=== PATIENT | female | born 1960 | race Caucasian/White ===

== ENCOUNTER → 2022-08-25 16:03 | Outpatient (CLI) | payer MEDICARE, SELFPAY ==
--- NOTE | ~2022-08-25 | MM_ITS ---
EXAMINATION: MM screening zulema BI w nadine HISTORY: Screening mammogram, family history of breast cancer in her mother. TECHNIQUE: Craniocaudal and mediolateral oblique 3-D tomosynthesis images were obtained and synthetic 2-D images were generated. CAD analysis was submitted and interpreted. COMPARISON: 11/16/2017, 03/14/2015, 08/24/2012 BREAST PARENCHYMAL COMPOSITION: The breasts are almost entirely fatty. FINDINGS: No suspicious mass, calcification, or architectural distortion are identified in either edwin ast to suggest malignancy. There has been no suspicious interval change. IMPRESSION: 1. No mammographic evidence of malignancy. 2. Recommend routine screening mammography in one year. BI-RADS Category 1: Negative Reviewed, dictated and finalized at location A.
== END ==
PROVIDERS: PCP Family Medicine; Visit Provider Family Medicine
DX: Z12.31 Encounter for screening mammogram for malignant neoplasm of breast (principal)
CPT/HCPCS: 77063; 77067

== ENCOUNTER 2022-11-12 10:53 | Emergency (ER) | payer OTHER, MEDICARE, SELFPAY ==
--- NOTE | ~2022-11-12 | XR_ITS ---
EXAMINATION: XR chest 2V DATE: 11/12/2022 14:07 INDICATION: Cough. TECHNIQUE: Frontal and lateral views of the chest were obtained. COMPARISON: Chest 2 views 03/06/2015, chest CT 04/23/2016 FINDINGS: There are chronic airspace opacities in right perihilar region with volume loss, consistent with radiation fibrosis. No pleural effusion or pneumothorax. The heart size is normal. Surgical cli ps in the right upper quadrant are likely from cholecystectomy. IMPRESSION: 1. 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 Reviewed, dictated and finalized at location A.
[2022-11-12 11:16] VITALS: BP 124/75; PULSE 113; RESP 20; TEMP 36.6; O2SAT 100
[2022-11-12 12:30] VITALS: BP 125/92; PULSE 106; RESP 22; O2SAT 98
[2022-11-12 12:39] VITALS: PULSE 104; RESP 18
[2022-11-12] MEDS: ALBUTEROL SULFATE NEB 2.5 MG/3 ML INH INHALATION (12:39)
[2022-11-12] MEDS: IPRATROPIUM BR 0.02% INH SOLN 0.5 MG/2.5 ML VIAL INHALATION (12:39)
[2022-11-12 12:47] VITALS: PULSE 107; RESP 20
[2022-11-12 13:20] LABS: Basophils Percent Auto 0.3 % (0.2-1.2); Eosinophils Absolute Auto 0.2 K/mm3 (0-0.3); Eosinophils Percent Auto 1.1 % (0-4.4); Hematocrit 37.7 % (37.0-47.0); Hemoglobin 12.1 g/dL (12.0-15.0); Immature Granulocyte Absolute 0.08 K/mm3 (0.00-0.031); Immature Granulocyte Percent A 0.5 % (0-0.5); Lymphocytes Percent Auto 23.9 % (18.3-44.2); Mean Corpuscular HGB Conc 32.1 g/dl (32-36); Mean Corpuscular Hemoglobin 29.8 pg (26-34); Mean Corpuscular Volume 92.9 fl (80-100); Mean Platelet Volume 8.8 fl (7.4-10.4); Monocytes Absolute Auto 1.1 K/mm3 (0.1-0.6); Monocytes Percent Auto 7.2 % (2.6-8.5); Neutrophils Absolute Auto 10.1 K/mm3 (1.3-6.7); Platelet Count Result 337 k/mm3 (150-375); Red Blood Count 4.06 M/mm3 (4.2-5.4); Red Cell Distribution Width 13.3 % (11.5-14.5); White Blood Count 15.1 K/mm3 (4.5-10.0)
--- NOTE | 2022-11-12 13:27 | ED.GENADULT ---
HPI - General Adult General Chief complaint: Upper Respiratory Infection Stated complaint: Fever, chills, SOB Time Seen by Provider: 11/12/22 11:55 History of Present Illness HPI narrative: Patient is a 62-year-old female who presents ER with fever and cough. Ongoing over the last 4 days. No sinus congestion but mild sore throat. Fever up to 101 ?F. Feels like she cannot get anything coughed up. She would like a cough suppressant. No exertional dyspnea. Denies any COPD but does have history of lung cancer in the past. No chest pain or chest pressure. No alleviating factors. Related Data Allergies Allergy/AdvReac Type Severity Reaction Status Date / Time Cephalosporins Allergy Severe RASH, Verified 06/14/22 15:13 SEVERE SWELLING, DIFF BREATHING codeine Allergy Mild Hives Verified 06/14/22 15:13 cephalexin Allergy Unknown unknown Verified 06/14/22 15:13 ciprofloxacin Allergy Unknown Anaphylaxis Verified 06/14/22 15:13 clavulanic acid Allergy Unknown BETALACTAMASE Verified 06/14/22 15:13 INHIBITORS Penicillins Allergy Unknown unknown Verified 06/14/22 15:13 Sulfa (Sulfonamide Allergy Unknown unknown Verified 06/14/22 15:13 Antibiotics) Review of Systems Review of Systems: All systems reviewed & are unremarkable except as noted in HPI and below Constitutional: Constitutional: Reports chills, Denies fatigue and Reports fever(s) ENT: Denies nasal congestion and Reports sore throat Cardiovascular: Cardiovascular: Denies chest pain, Denies rapid heart rate and Denies radiating jaw, neck or arm pain Respiratory: Respiratory: Reports cough, Denies dyspnea and Denies wheezing Gastrointestinal: Gastrointestinal: Denies abdominal pain, Denies nausea and Denies vomiting [facility] Past Medical History Medical History Anxiety Bladder prolapse Bladder prolapse, female, acquired Colon cancer screening (~2018) Cologuard negative Diabetes HLD (hyperlipidemia) Lung cancer Peripheral neuropathy Pulmonary embolism Pulmonary embolus Small cell lung cancer Surgical History Surgical History H/O: hysterectomy History of cholecystectomy History of cholecystectomy History of total abdominal hysterectomy (~2004) Family History Family History Other Cerebrovascular accident Family history of chronic obstructive pulmonary disease Family history of coronary artery disease Social History Social History (Updated 06/14/22 @ 15:13 by Preethi Garcia [facility]) Smoking status: Former smoker Second hand tobacco smoke exposure: Yes Smoking end date: 04/25/11 Alcohol intake: current Substance use: never Substance use type: does not use Lack of Transportation: No Lack of Food: Never True Current Housing: I Have Housing Concerned About Future Housing: No Difficulty Paying Gas/Electric Bills: No Difficulty Paying for Meds: No Currently Unemployed: No Difficulty w/ Childcare or Family Care: No Gender identity (if verbalized by the patient): Female Sexual Orientation (if Verbalized by the Patient): Straight or Heterosexual Spiritual care concerns: No Agree to blood products: Yes Exam Narrative: GENERAL: Well-appearing, well-nourished, and in no acute distress. HEAD: Normocephalic, atraumatic. ENT: Mucous membranes moist. Normal-appearing posterior oropharynx. CHEST: Clear to auscultation. No respiratory distress. HEART: Regular rate and rhythm. Normal peripheral pulses. ABDOMEN: Soft, nontender, nondistended. EXTREMITIES: Normal range of motion. No edema. NEURO: Alert and oriented x3. PSYCH: Normal mood and affect. Course Course Emergency Course: Patient feels improved with nebulizer treatment. Lungs are clear. Cough is nonproductive. Chest x-ray with radiation scarring and no focal infiltra
[2022-11-12 13:30] VITALS: BP 99/67; PULSE 112; RESP 20; O2SAT 95
[2022-11-12 13:31] LABS: Alanine Aminotransferase 25 U/L (6-35); Albumin Level 3.7 g/dL (3.5-5.1); Alkaline Phosphatase 147 U/L (38-126); Anion Gap 9 mmol/L (8-16); Aspartate Amino Transferase 26 U/L (14-36); Bilirubin,Total 0.6 mg/dL (0.2-1.3); Blood Urea Nitrogen 12 mg/dL (7-17); Calcium 8.6 mg/dL (8.4-10.2); Carbon Dioxide 27 mmol/L (22-30); Chloride 104 mmol/L (98-107); Estimated CRCL calculation 53 ml/min; Estimated Glomerular Filt Rate 46; Glucose 146 mg/dL (65-110); Potassium 4.4 mmol/L (3.4-5.0); Sodium 140 mmol/L (137-145)
[2022-11-12 13:46] LABS: Influenza A QL RT-PCR Negative (Negative); Influenza B QL RT-PCR Negative (Negative); SARS-CoV-2 RNA PCR Negative (Negative)
== END 2022-11-12 15:32 | disposition home or self-care (01) ==
PROVIDERS: Emergency Provider Emergency Medicine; PCP Family Medicine
DX: B34.9 Viral infection, unspecified (principal); Z20.822 Contact with and (suspected) exposure to COVID-19; E78.5 Hyperlipidemia, unspecified; E11.42 Type 2 diabetes mellitus with diabetic polyneuropathy; N81.10 Cystocele, unspecified; Z85.118 Personal history of other malignant neoplasm of bronchus and lung; Z86.711 Personal history of pulmonary embolism; Z87.891 Personal history of nicotine dependence; Z90.710 Acquired absence of both cervix and uterus; Z90.49 Acquired absence of other specified parts of digestive tract; Z79.85 Long-term (current) use of injectable non-insulin antidiabetic drugs; Z79.4 Long term (current) use of insulin; Z79.84 Long term (current) use of oral hypoglycemic drugs
CPT/HCPCS: 36415; 71046; 80053; 85025; 87636; 94640; 99283

== ENCOUNTER 2023-05-07 12:54 | Outpatient (CLI) | payer MEDICARE, OTHER, SELFPAY ==
--- NOTE | ~2023-05-07 | XR_ITS ---
Right Knee Technique: AP, lateral, and sunrise views were obtained. Clinical History: Pain Findings: No acute fracture or dislocation is seen. Tibial intramedullary matias is partially imaged. Ol d, healed fracture deformity of the mid fibular shaft noted. Osseous alignment is anatomic. Joint spa remedios are preserved without degenerative or erosive change. Soft tissues are unremarkable. No joint eff usion is seen. Impression: No acute abnormality. Tibial intramedullary matias. Old, healed fracture deformity of the mid fibular shaft. Reviewed, dictated and finalized at location M. LO DRIVER Impression: No acute abnormality. Tibial intramedullary matias. Old, healed fracture deformity of the mid fibular shaft.
== END 2023-05-07 12:55 | disposition home or self-care (01) ==
LOC: ANHIMG 12:55
PROVIDERS: PCP Orthopaedic Surgery; Visit Provider Physician Assistant Medical
DX: M25.561 Pain in right knee (principal); Z96.698 Presence of other orthopedic joint implants; Z87.81 Personal history of (healed) traumatic fracture
CPT/HCPCS: 73562

== ENCOUNTER 2023-06-27 08:19 | Outpatient (CLI) | payer MEDICARE, SELFPAY ==
--- NOTE | 2023-06-27 08:30 | ECG_ITS ---
Measurements Intervals [place] Rate: 99 P: 41 MT: 156 QRS: 53 QRSD: 99 T: 61 QT: 361 QTc: 464 Interpretive Statements SINUS RHYTHM LOW QRS VOLTAGE IN PRECORDIAL LEADS BORDERLINE T WAVE ABNORMALITY- ANTERIOR LEADS BORDERLINE ECG NO PREVIOUS ECG AVAILABLE FOR COMPARISON Electronically Signed On 06-27-2023 9:18:48 ARCHITECTURE FACULTY MEMBER by Eduardo Silva D.O.
== END 2023-06-27 08:20 | disposition home or self-care (01) ==
PROVIDERS: PCP Family Medicine; Visit Provider Anesthesiology
DX: E78.5 Hyperlipidemia, unspecified (principal); R94.31 Abnormal electrocardiogram [ECG] [EKG]
CPT/HCPCS: 93005

== ENCOUNTER 2023-06-30 01:14 | Day surgery (SDC) | payer MEDICARE, SELFPAY ==
[2023-06-24 14:55] VITALS: BMI 36.6
--- NOTE | 2023-06-24 15:08 | PC.NURSE ---
Report to the Outpatient Waiting Room, entrance under the green pavilion located off [facility], at time _0830 on date _06/30/23 . Planned Procedure Time: _1030 . Time changes happen often and if your time is changed the preop area will call you the afternoon before. - You and your visitor will be asked to self-screen and do not enter if you have any COVID symptoms. - A mask is optional within the hospital at this time. Patients may have clear liquids (water, carbonated beverages, clear teas, apple juice) until 3 hours prior to surgery with a maximum of 20 ounces. - No food from midnight until time of surgery - Infants may have breast milk until 4 hours before surgery, formula 6 hours prior to surgery. - Children will be allowed to drink immediately following surgery. If applicable, please bring a bottle or sippy cup to assist with drinking. Juice, water, soda, and popsicles are readily available. For infants on formula, please bring formula the day of surgery. Pacifiers are allowed. Take the following medications with a SIP of water the morning of surgery: _Inhalers DO NOT STOP ANY OF YOUR OTHER PRESCRIPTION MEDICATIONS PRIOR TO SURGERY ?EXCEPT THE FOLLOWING Medications to discontinue per physician _No NSAIDs 7 days prior_ No additional short acting insulin at bedtime. Please no make-up, nail danish, hairspray, perfume, deodorant, or body powder the day of surgery. No jewelry (including any body piercings) or valuables the day of surgery, leave them at home. Please take a shower or bath the night before, or the morning of, surgery with an antibacterial soap. Wear comfortable, loose fitting clothing. Children are encouraged to wear pajamas. - Jewelry must be removed prior to entering the operating room. Rings and piercings that are not removed may be cut off. - The hospital will not accept responsibility for valuables. - Please leave all valuables, including medications, at home the day of surgery. If you are going home after surgery, a licensed pile driver engineer must drive you home. - NO public transportation without another adult if you receive anesthesia. - We recommend that an adult stay with you for 24 hours following discharge. - We also recommend that you do not drive, make important decision, drink alcoholic beverages, or take any drugs that were not prescribed by your health care provider for at least 24 hours after your discharge time. For Pediatric surgeries, we recommend two adults accompany the child home. Follow any additional instructions given to you from your surgeon. If you or anyone in your household have experienced Covid symptoms in the past week, please notify your surgeon or the nurse liaison at the phone number below for possible testing. Telephone instructions given to __Odalys and asked if any additional questions and then verbalized understanding. Patient advised to call surgeon office or pre surgery nurse liaison [phone] if any additional questions.
--- NOTE | 2023-06-29 11:58 | WPDANESEPPF ---
Anes - Initial Pre Proc Eval Procedure: Operation Date: 06/30/23 09:15 Proposed Procedures p Right Knee Arthroscopic Partial Lateral Meniscectomy - Eric An MD Date/Time: 06/29/23 11:58 Surgeon: Eric An MD Pre Op Diagnosis: right knee lateral meniscus tear Patient Data Age: 62 Gender: F Height: 1.65 m Weight: 99.79 kg Last Vital Signs O2 Del Method Room Air 06/24/23 14:54 Allergies Allergy/AdvReac Type Severity Reaction Status Date / Time Cephalosporins Allergy Severe RASH, Verified 06/24/23 14:34 SEVERE SWELLING, DIFF BREATHING codeine Allergy Mild Hives Verified 06/24/23 14:34 cephalexin Allergy Unknown Rash Verified 06/24/23 14:34 ciprofloxacin Allergy Unknown Anaphylaxis Verified 06/24/23 14:34 clavulanic acid Allergy Unknown BETALACTAMASE Verified 06/24/23 14:34 INHIBITORS Sulfa (Sulfonamide Allergy Unknown unknown Verified 06/24/23 14:34 Antibiotics) Home Medications Medication Instructions Recorded Confirmed Type blood-glucose transmitter (Dexcom #1 ea 01/13/22 06/24/23 Rx G6 Transmitter device) Humalog KwikPen Insulin 100 See Rx Instructions .Route 05/10/22 06/24/23 Rx unit/mL subcutaneous (insulin .COMPLEX #45 mL lispro) albuterol sulfate 90 mcg/actuation 1 inh inhalation Q4H PRN shortness 08/08/22 06/24/23 Rx aerosol inhaler (Ventolin HFA) of breath or wheezing #8.5 grams albuterol sulfate 2.5 mg/3 mL 2.5 mg (3 mL) inhalation Q6H #75 mL 11/15/22 06/24/23 Rx (0.083 %) solution for nebulization dulaglutide 3 mg/0.5 mL 3 mg (0.5 mL) subcut WEEKLY #6 mL 03/10/23 06/24/23 Rx subcutaneous pen injector (Trulicity) metformin 1,000 mg tablet 1,000 mg PO BID #180 tabs 04/25/23 06/24/23 Rx gabapentin 300 mg capsule 300 mg PO TID #270 caps 05/04/23 06/24/23 Rx alprazolam 0.5 mg tablet 0.5 mg PO TID PRN anxiety #90 tabs 05/11/23 06/24/23 Rx pen needle, diabetic 31 gauge x #100 ea 05/18/23 06/24/23 Rx 5/16 (BD Ultra-Fine Short Pen Needle) blood-glucose meter,continuous 06/24/23 06/24/23 History (Dexcom G7 Obstetrical Tech) blood-glucose sensor (Dexcom G7 06/24/23 06/24/23 History Sensor device) insulin glargine 100 unit/mL (3 60 unit subcut HS 06/24/23 06/24/23 History mL) subcutaneous pen (Lantus Solostar U-100 Insulin) simvastatin 20 mg tablet 20 mg PO HS 06/24/23 06/24/23 History Results Review: All pre-operative results and documents have been reviewed as part of the pre-operative evaluation. [facility] Past Medical History Medical History Anxiety Bladder prolapse Bladder prolapse, female, acquired Colon cancer screening (~2018) Cologuard negative Diabetes HLD (hyperlipidemia) Lung cancer Peripheral neuropathy Pulmonary embolism Pulmonary embolus Small cell lung cancer Surgical History Surgical History H/O: hysterectomy History of cholecystectomy History of cholecystectomy History of total abdominal hysterectomy (~2004) Family History Family History Other Cerebrovascular accident Family history of chronic obstructive pulmonary disease Family history of coronary artery disease Social History Social History Smoking packs per day: 1.5 Smoking cigarettes per day: 30.0 Years smoked: 33 Smoking pack-years: 49.50 Smoking status: Former smoker Tobacco type: cigarettes Second hand tobacco smoke exposure: Yes Smoking end date: 04/25/90 Alcohol intake: current Substance use: never Substance use type: does not use Do You Feel Safe in your Home?: Yes Lack of Transportation: No Lack of Food: Never True Current Housing: I Have Housing Concerned About Future Housing: No Difficulty Paying Gas/Electric Bills: No Difficulty P
[2023-06-30] VITALS (8 sets, daily range): BP systolic 105–143; BP diastolic 56–89; PULSE 74–103; RESP 14–17; TEMP 36.2–36.3; O2SAT 96–100
--- NOTE | 2023-06-30 07:12 | WPDHPUPDATE1 ---
History and Physical Update Update Date/Time: 06/30/23 07:12 History and Physical has been reviewed, including an updated exam of the patient. There are NO changes in the patient's condition. Risks, benefits, and alternatives have been discussed and questions answered. Patient agrees to proceed with procedure.
[2023-06-30] MEDS: LACTATED RINGERS 1,000 ML 30 ML IV CONT ×2 (07:30→10:29)
[2023-06-30 08:00] LABS: Glucose Point of Care 103 mg/dl (65-105)
[2023-06-30] MEDS: ACETAMINOPHEN 500 MG TABLET 1000 MG PO (08:06)
[2023-06-30] MEDS: KETOROLAC 15 MG/ML VIAL (*BKC) IV PUSH (08:06)
--- NOTE | 2023-06-30 08:21 | SUR.PREOP ---
SPOKE W/ DR. FINK RE: PREOP BMP. PT DIFFICULT VASC ACCESS. FASTING GLUCOSE 103MG/DL THIS AM. PRIOR EMR BMPs WNL EXCEPT SERUM GLUCOSES. PT NOT ON DIURETICS. BMP PER ANES PROTOCOL R/T DM II WAIVED.
--- NOTE | 2023-06-30 08:29 | WPDANESEPPF ---
Anes - Initial Pre Proc Eval Procedure: Operation Date: 06/30/23 09:15 Proposed Procedures p Right Knee Arthroscopic Partial Lateral Meniscectomy - Eric An MD Date/Time: 06/30/23 08:29 Surgeon: Eric An MD Pre Op Diagnosis: right knee lateral meniscus tear Patient Data Age: 62 Gender: F Height: 1.65 m Weight: 105.1 kg Last Vital Signs Temp 97.2 F L 06/30/23 07:30 Pulse 103 H 06/30/23 07:30 Resp 14 06/30/23 07:30 BP 109/56 L 06/30/23 07:30 Pulse Ox 96 06/30/23 07:30 O2 Del Method Room Air 06/30/23 07:30 Allergies Allergy/AdvReac Type Severity Reaction Status Date / Time Cephalosporins Allergy Severe RASH, Verified 06/30/23 08:07 SEVERE SWELLING, DIFF BREATHING codeine Allergy Mild Hives Verified 06/30/23 08:07 cephalexin Allergy Unknown Rash Verified 06/30/23 08:07 ciprofloxacin Allergy Unknown Anaphylaxis Verified 06/30/23 08:07 clavulanic acid Allergy Unknown BETALACTAMASE Verified 06/30/23 08:07 INHIBITORS Sulfa (Sulfonamide Allergy Unknown unknown Verified 06/30/23 08:07 Antibiotics) Home Medications Medication Instructions Recorded Confirmed Type blood-glucose transmitter (Dexcom #1 ea 01/13/22 06/24/23 Rx G6 Transmitter device) Humalog KwikPen Insulin 100 See Rx Instructions .Route 05/10/22 06/24/23 Rx unit/mL subcutaneous (insulin .COMPLEX #45 mL lispro) albuterol sulfate 90 mcg/actuation 1 inh inhalation Q4H PRN shortness 08/08/22 06/24/23 Rx aerosol inhaler (Ventolin HFA) of breath or wheezing #8.5 grams albuterol sulfate 2.5 mg/3 mL 2.5 mg (3 mL) inhalation Q6H #75 mL 11/15/22 06/24/23 Rx (0.083 %) solution for nebulization dulaglutide 3 mg/0.5 mL 3 mg (0.5 mL) subcut WEEKLY #6 mL 03/10/23 06/24/23 Rx subcutaneous pen injector (Trulicity) metformin 1,000 mg tablet 1,000 mg PO BID #180 tabs 04/25/23 06/24/23 Rx gabapentin 300 mg capsule 300 mg PO TID #270 caps 05/04/23 06/24/23 Rx alprazolam 0.5 mg tablet 0.5 mg PO TID PRN anxiety #90 tabs 05/11/23 06/24/23 Rx pen needle, diabetic 31 gauge x #100 ea 05/18/23 06/24/23 Rx 5/16 (BD Ultra-Fine Short Pen Needle) blood-glucose meter,continuous 06/24/23 06/24/23 History (Dexcom G7 Nursing Unit Coordinator) blood-glucose sensor (Dexcom G7 06/24/23 06/24/23 History Sensor device) insulin glargine 100 unit/mL (3 60 unit subcut HS 06/24/23 06/24/23 History mL) subcutaneous pen (Lantus Solostar U-100 Insulin) simvastatin 20 mg tablet 20 mg PO HS 06/24/23 06/24/23 History tramadol 50 mg tablet 50 mg PO Q4H PRN pain #30 tabs 06/30/23 Rx Laboratory Tests 06/30/23 07:50 POC Capillary Glucose 103 mg/dl (65-105) Patient hx anesthesia problems: none Family hx anesthesia problems: none Results Review: All pre-operative results and documents have been reviewed as part of the pre-operative evaluation. [facility] Past Medical History Medical History Anxiety Bladder prolapse Bladder prolapse, female, acquired Colon cancer screening (~2018) Cologuard negative Diabetes HLD (hyperlipidemia) Lung cancer Peripheral neuropathy Pulmonary embolism Pulmonary embolus Small cell lung cancer Surgical History Surgical History H/O: hysterectomy History of cholecystectomy History of cholecystectomy History of total abdominal hysterectomy (~2004) Family History Family History Other Cerebrovascular accident Family history of chronic obstructive pulmonary disease Family history of coronary artery disease Social History Social History Smoking packs per day: 1.5 Smoking cigarettes per day: 30.0 Years smoked: 33 Smoking pack-years: 49.50 Smoking status: Former smoker Tobacco type: cigarettes S
[2023-06-30] MEDS: CLINDAMYCIN 900 MG/D5W 50 ML 900 MG/50 ML PIGGYBACK 50 MG IVPB (09:21)
[2023-06-30] MEDS: BUPIVACAINE/EPINEPHRINE 0.5% 30 ML VIAL INFILTRATE (09:48)
[2023-06-30 10:56] LABS: Glucose Point of Care 94 mg/dl (65-105)
--- NOTE | 2023-06-30 11:59 | W.PM.PROC2 ---
Procedure Note - Detailed Date of Procedure 06/30/23 Pre-op Diagnosis Right knee lateral meniscus tear Post-op Diagnosis Other (Lateral and medial meniscus tear, right knee.) Procedure Performed Arthroscopic partial medial and lateral meniscectomy, right knee. Surgeon Eric An MD Anesthesia General Findings Extensive tear of the lateral meniscus. Mild posterior horn tear of the medial meniscus. Medial femur chondromalacia grade 1, medial tibia grade 1. Lateral femur chondromalacia grade 2, lateral tibia grade 2. Patellar grade 3, trochlea grade 4. Description of Procedure The patient was identified and the surgical site confirmed and signed in the preoperative holding area. Antibiotics were started per protocol, and the patient was brought to the operative room and transferred to the OR table. A general anesthetic was administered. Supine position with the operative lower extremity position in the leg johns after placement of a well padded tourniquet. The leg support was lowered and the contralateral limb was supported with a soft bolster. The knee was prepped and draped in the usual sterile fashion. A time-out was performed. The portal sites were marked and infiltrated with 0.5% Marcaine 20 mL. The limb was exsanguinated and the tourniquet inflated to 300 mL Hg. Standard inferolateral and inferomedial portals were established. Inflow was obtained with the saline pump. The camera was introduced. Diagnostic inspection of the joint was accomplished. The menisci were debrided with the arthroscopic shaver and punches until stable. The radiofrequency probe was also used for further d?bridement. The arthroscopic instruments were removed. The tourniquet released and wounds closed with subcutaneous 4-0 Monocryl absorbable suture. Steri strips and a sterile dressing were applied. A light elastic wrap was placed. The patient was extubated and brought to the recovery room in stable condition. Estimated Blood Loss 5 Drains No Complications No immediate complications Condition Stable Disposition PACU [facility] Billing Surgery - Charge Forward: Surgery Billing
== END 2023-06-30 11:57 | disposition home or self-care (01) ==
PROVIDERS: PCP Family Medicine; Visit Provider Orthopaedic Surgery
PROC: (CPT 29870; principal; 2023-06-30 09:15)
DX: S83.281A Other tear of lateral meniscus, current injury, right knee, initial encounter (principal); S83.241A Other tear of medial meniscus, current injury, right knee, initial encounter; M94.261 Chondromalacia, right knee; W19.XXXA Unspecified fall, initial encounter; E78.5 Hyperlipidemia, unspecified; E11.42 Type 2 diabetes mellitus with diabetic polyneuropathy; F41.9 Anxiety disorder, unspecified; Z85.118 Personal history of other malignant neoplasm of bronchus and lung; Z86.711 Personal history of pulmonary embolism; Z79.51 Long term (current) use of inhaled steroids; Z79.4 Long term (current) use of insulin; Z79.85 Long-term (current) use of injectable non-insulin antidiabetic drugs; Z79.84 Long term (current) use of oral hypoglycemic drugs; Z87.891 Personal history of nicotine dependence; E66.9 Obesity, unspecified; Z68.38 Body mass index [BMI] 38.0-38.9, adult
CPT/HCPCS: 29880; 82948; A9270; J1100; J1885; J2250; J2371; J2405; J2704; J3010; J7120

== ENCOUNTER 2023-10-06 14:00 | Outpatient (RCR) | payer MEDICARE, SELFPAY ==
--- NOTE | 2023-09-08 15:37 | OPREHPOC ---
Outpatient Therapy Plan of Care This is a Multidisciplinary Plan of Care that may contain components documented by all disciplines (PT, OT, and ST.) PT Problem 1 PT Problem #1 Knowledge Deficit PT Goal 1 Goal [place] with HEP Target Visit 4 PT Problem 2 PT Problem #2 Impaired Strength PT Goal 1 Goal Improve oneil hip flexion strength to 4+/5 to improve foot clearence with gait Target Visit 10 PT Goal 2 Goal Patient will improve oneil hip abduction strength to 4/5 to improve lateral stability with ADLs Target Visit 10 PT Problem 3 PT Problem #3 Impaired Balance PT Goal 1 Goal Improve Tinetti score by 6 points to minimize fall risk PT Problem 4 PT Problem #4 Impaired Gait PT Goal 1 Goal Improve 2 minute walk distance to 325 feet to improve gait speed and endurance to reduce fall risk Target Visit 10 PT Goal 2 Goal Patient will ambulate 100' or more with SPC or better for improved independence
--- NOTE | 2023-09-08 15:37 | PTOPEVAL1 ---
Assessment and note entered by Sixto Rodriguez, PT Evaluation Information Assessment Status Evaluation Diagnosis Hemiplegia, Weakness Onset July 2023 Subjective Information Reports that she woke up in the hospital with no idea why she was there. Reports that she was told she had multiple strokes and a brain bleed. Reports that she went to a rehab center in which she received therapy for a while to get back home. She has had some memory issues over the past month due to all of her issues. She was independent prior to CVA but is currently dependent on 2 wheeled walker for safety and distance. She is no longer on gabapentin and gets leg tremors at night. Feels that she has gotten a lot of her strength back at this point but struggles with endurance and activity. Last night was the first time that she was able to cook for herself and her . [place]o that her right side was a lot weaker during recovery. Reported Pain Level Pain Score 0: Self Report Assessment PT Clinical Summary Patient presents with decreased endurance, weakness predominantly in R side, and decreased balance. Will benefit from skilled therapy to address these deficits moving forward for improved functional activity, safety, and gross mobility progression. No concerns or glaring issues at this time as barrier to progress. Plan of Care Interventions Gait Training,Manual Therapy,Neuro Re-education, Therapeutic Activities,Therapeutic Exercise PT Services Indicated Yes Treatment Frequency and 2x/week for 10 visits Duration These treatments will address the objective and functional deficits as defined above. The patient will be advanced safely and appropriately in order for the patient to progress towards his/her prior level of function. Additional exercises will be introduced and as well as a comprehensive home exercise program upon discharge, if needed, ?to ensure carryover of functional gains achieved in the clinic. This treatment plan has been reviewed and agreement upon by the patient.
--- NOTE | 2023-10-12 16:31 | PCPTNOTE ---
Patient called & cancelled scheduled appointment for 10/13/23 due to being unable to make it.
--- NOTE | 2023-10-18 10:12 | PCPTNOTE ---
Patient called & cancelled all future scheduled appointments due to feeling better and wanting to be done with therapy. Physical therapist informed.
--- NOTE | 2023-10-19 09:48 | PTOPDC ---
Assessment and note entered by Enma Ta, PT Discharge Report Assessment Status Discharge - Pt Not Present Diagnosis Hemiplegia, Weakness Onset July 2023 Subjective Information pt called, stated she was feeling better and canceled all remaining therapy appointments. Assessment PT Clinical Summary Odalys has received 5 PT sessions, from September 07 to October 05. She called yesterday, canceled all of her appointments, due to feeling better. Discharge PT per pt request. The goals were not addressed. Plan of Care PT Services Indicated No
== END 2023-10-19 13:21 | disposition home or self-care (01) ==
LOC: ANHPT 14:00
PROVIDERS: PCP Family Medicine; Visit Provider Family Medicine
DX: I69.351 Hemiplegia and hemiparesis following cerebral infarction affecting right dominant side (principal); I69.398 Other sequelae of cerebral infarction; G93.49 Other encephalopathy; M54.2 Cervicalgia; Z86.718 Personal history of other venous thrombosis and embolism; Z85.118 Personal history of other malignant neoplasm of bronchus and lung
CPT/HCPCS: 97110; 97140; 97161; 97530

== ENCOUNTER 2024-02-10 11:39 | Outpatient (CLI) | payer MEDICARE, SELFPAY ==
--- NOTE | ~2024-02-10 | XR_ITS ---
Right Knee Technique: AP, lateral, and sunrise views were obtained. Clinical History: Osteoarthritis Findings: No acute fracture or dislocation is seen. Tibial intramedullary matias noted. There is mild de generative change throughout the knee. Possible chronic osteochondral lesion of the lateral femoral c ondyle. Soft tissues are unremarkable. No joint effusion is seen. Impression: Mild degenerative changes throughout the knee. Possible mild osteochondral lesion of the lateral femo ral condyle. Reviewed, dictated and finalized at location M. Impression: Mild degenerative changes throughout the knee. Possible mild osteochondral lesi on of the lateral femoral condyle.
== END 2024-02-10 11:40 | disposition home or self-care (01) ==
LOC: ANHIMG 11:46
PROVIDERS: PCP Family Medicine; Visit Provider Orthopaedic Surgery
DX: M17.11 Unilateral primary osteoarthritis, right knee (principal)
CPT/HCPCS: 73564

== ENCOUNTER 2025-01-24 10:46 | Outpatient (CLI) | payer MEDICARE, SELFPAY ==
--- OUTSIDE RECORDS SUMMARY | 2025-01-24 11:19 | XMS_ITS | Clinical Summary ---
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 Active TRULICITY 3 MG/0.5ML injection Inject 3 mg into the skin once a week. Sundays 4 Active albuterol sulfate HFA 108 (90 Base) MCG/ACT inhaler Inhale 1 puff into the lungs every 4 (four) hours as needed for Shortness of breath. 4 Active HUMALOG KWIKPEN 100 UNIT/ML injection (PEN) INJECT UP TO 4 UNITS SUBCUTANEOUSLY THREE TIMES DAILY BEFORE MEALS 4 Active docusate sodium (COLACE) 100 MG capsule take 1 capsule by mouth twice daily as needed for constipation 4 Active Continuous Glucose Sensor (DEXCOM G6 SENSOR) Misc USE DIRECTED 4 TIMES DAILY 4 Active simvastatin (ZOCOR) 40 MG tablet Take 1 tablet (40 mg total) by mouth daily. 4 Active clopidogrel (PLAVIX) 75 MG tablet Take 1 tablet (75 mg total) by mouth daily. 90 tablet 1 4 Active metoprolol succinate ER (TOPROL-XL) 25 MG 24 hr tablet Take 1 tablet (25 mg total) by mouth daily. 90 tablet 1 4 Active ALPRAZolam (XANAX) 0.5 MG tablet Take 1 tablet (0.5 mg total) by mouth 3 (three) times daily as needed. 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 Status post placement of implantable loop record er 08/18/2023 Overview (08/18/2023): WENDY AN implanted for Cryptogenic Stroke. Dizziness 06/15/2023 Diabetes mellitus ([facility]) 05/07/2019 Hypercholesterolemia 05/07/2019 Primary malignant neoplasm of lung ([facility]) 11/04/2017 Resolved Problems Problem Noted Date Diagnosed Date Resolved Date AMS (altered mental status) 08/09/2023 08/19/2023 Encounters Date Type Department Care Team Description 12/24/2024 4:30 PM CDT Allied Health/Nurse Visit [facility], [address] [address] Frandy Stout MD Remote Device Check 11/19/2024 4:20 PM CDT Allied Health/Nurse Visit [facility], [address] [address] Frandy Stout MD Remote Device Check from Last 3 Months Immunizations Immunization Administration Dates Next Due Abrysvo Respiratory Syncytia l Virus (RSV) 0.5 mL, PF 01/02/2023 Influenza Adult (Generic) 01/02/2023,,04/07/2021,2020,06/21/2019,06/19/2019,07/03/2018 PFIZER COVID-19 (ORIGINAL FORMULATION, PURPLE CAP) mRNA, LNP-S, PF, 30 MCG/0.3 ML DOSE 01/19/2021,06/20/2020,05/30/2020 PFIZER COVID-19 BIVALENT (12 +) mRNA, LNP-S, PF, 30 MCG/0.3 ML DOSE 02/20/2022 Social History Tobacco Use Types Packs/Day Years Used Date Smoking Tobacco: Never Smokeless Tobacco: Never [facility] Comfort Lineities Answer Date Recorded In the past 12 months has [employer], gas, oil, or water [employer] threatened to shut off services in your home? No 08/09/2023 Humiliation, Afraid, Rape, a nd Kick questionnaire Answer Date Recorded Within the last year, have y ou been afraid of your partner or ex-partner? Patient unable to answer 08/09/2023 Within the last year, have y ou been humiliated or emotionally abused in other ways by your partner or ex-partner? Patient unable to answer 08/09/2023 Within the last year, have y ou been kicked, hit, slapped, or otherwise physically hurt by your partner or ex-partner? Patient unable to answer 08/09/2023 Within the last year, have y ou been raped or forced to have any kind of sexual activity by your partner or ex-partner? Patient unable to answer 08/09/2023 Overall Financial Resource Strain (CARDIA) Answe r Date Recorded How hard is it for you to pa y for the very basics like food, housing, medical care, and heating? Not hard at all 08/09/2023 Hunger Vital Sign Answer Date Recorded Within the past 12 months, y ou worried that your food would run out before you got the money to buy more. Never true 08/09/19 24 Within the past 12 months, t he food you bought just didn't last and you didn't have money to get more. Never true 08/09/2023 PRAPARE - Transportation Answer Date Re corded In the past 12 months, has l ack of transportation kept you from medical appointments or from getting medications? No 07/24 In the past 12 months, has l ack of transportation kept you from meetings, work, or from getting things needed for daily living? No 08/09/2023 Housing Stability Vital Sign Answer Andrea e Recorded In the last 12 months, was t here a time when you were not able to pay the mortgage or rent on time? No 06/16/2023 In the last 12 months, how many places have you lived? 1 06/16/2023 In the last 12 months, was t here a time when you did not have a steady place to sleep or slept in a alf (including now)? No 06/16/2023 Housing Stability Vital Sign Answer Andrea e Recorded In the last 12 months, was t here a time when you were not able to pay the mortgage or rent on time? No 08/09/2023 In the past 12 months, how m any times have you moved where you were living? 1 08/09/2023 At any time in the past 12 m [facility], were you homeless or living in a alf (including now)? No 08/09/2023 Comments No Sex and Gender Information Value Date Recorded Sex Assigned at Not on file Legal Sex Female 4:50 PM LAMINATION INSPECTOR Gender Identity Not on file Sexual Orientation Not on file Last Filed Vital Signs Vital Sign Reading Time Taken Comments Blood Pressure 112/64 03/19/2024 11:55 AM LAMINATION INSPECTOR Pulse 94 03/19/2024 11:55 AM LAMINATION INSPECTOR Temperature 36.3 C (97.3 F) 08/19/2023 7:38 AM CDT Respiratory Rate 18 08/19/2023 12:06 PM CDT Oxygen Saturation 98% 03/19/2024 11:55 AM LAMINATION INSPECTOR Inhaled Oxygen Concentration - - Weight 102.5 kg (226 lb) 03/19/2024 11:55 AM LAMINATION INSPECTOR Height 162.6 cm (5' 4) 03/19/2024 11:55 AM LAMINATION INSPECTOR Body Mass Index 38.79 03/19/2024 11:55 AM LAMINATION INSPECTOR Plan of Treatment Upcoming Encounters Date Type Department Care Team (Late st Contact Info) Description 01/28/2025 4:40 PM CDT Allied Health/Nurse Visit [facility], [address] [address] Frandy Stout MD [facility]. [address] [place], [place] [address] 03/25/2025 9:30 AM LAMINATION INSPECTOR Office Visit [facility], [address] [place], [place] [id number] Diamante West MD [facility] [address] [place], [place] [id number] Health Maintenance Due Date Last Done Comments Colorectal Cancer Screening Colonoscopy (10 Years) 1960 Kidney Health Evaluation 1960 Annual Physical 07/16/1963 Diabetes: Retinopathy Eye Exam 1978 Hepatitis C 1978 DTaP, Tdap and Td Vaccines (1 - Tdap) 07/16/1979 Pneumococcal Vaccine: 50+ Years (1 of 2 - PCV) 07/16/1979 Mammogram Screening 2000 Zoster Vaccines (1 of 2) 2010 Hemoglobin A1C 02/11/2024 08/12/2023, 05/27, 06/03/2019 Lipid Panel 08/11/2024 08/12/2023 COVID-19 Vaccine ( season) 2024 02/20/2022, 01/19/2021, 06/20/2020, Additional history exists Influenza Adult (#1) 2025 01/02/2023, 02/20/2022, 04/07/2021, Additional history exists RSV Immunization or 60+ Years Completed 01/02/2023 Meningococcal B Vaccine Aged Out No l onger eligible based on patient's age to complete this topic Meningococcal Vaccine Aged Out No eliel yvan eligible based on patient's age to complete this topic RSV Immunizations Under 20 Months Aged Out No longer eligible based on patient's age to complete this topic Goals Goal Patient Goal Type Associated Problems Recent Progress Patient-Stated? Author Health - patient able to perform ADLs independently Lifestyle No Giselle Tillman RN Medical Devices Implanted Type Area [employer] Device Identifier Shelf Expiration Date Model / Serial / Lot Mdt Linq Ii-08/18/2023 Implanted:Qty : 1 on 08/18/2023 by Frandy Stout MD Implantable Loop Recorder [employer] CARDIAC RHYTHM AND HEART FAILURE - DIV M 01/18/2025 [id number] / [id number] / Procedures Procedure Name Priority Date/Time Associated Diagnosis Comments LIPID PANEL Routine 08/12/2023 11:09 AM CDT HEMOGLOBIN, GLYCOSYLATED Routine 08/12/2023 11:09 AM CDT from Last 3 Months or Most Recently Relevant to Health Maintenance Results * (ABNORMAL) HEMOGLOBIN, GLYCOSYLATED (08/12/2023 11:09 AM CDT) HGB A1C 7.0(H) <5.7 % 08/12/2023 12:00 PM CDT [facility] Comment: ADA GUIDELINES 2010 5.7 TO 6.4% INCREASED RISK OF DIABETES > OR = 6.5% CONSISTENT WITH DIABETES ESTIMATED AVG GLUCOSE 154 mg/dL 08/12/2023 12:00 PM CDT [facility] 08/12/2023 11:0 9 AM CDT Jose Montero MD LABORATORY Final Result [facility] [address] [place] [address], * (ABNORMAL) LIPID PANEL (08/12/2023 11:09 AM CDT) CHOLESTEROL 186 <200 MG/DL 08/12/2023 11:57 AM CDT [facility] TRIGLYCERIDES 176(H) <150 MG/DL 08/12/2023 11:57 AM CDT [facility] HDL 41 >40.0 MG/DL 08/12/2023 11:57 AM CDT [facility] LDL (CALCULATED) 110(H) <100 MG/DL 08/12/2023 11:57 AM CDT [facility] NON HDL CHOLESTEROL 145(H) <130 MG/DL 08/12/2023 11:57 AM CDT [facility] CHOL/HDL RATIO 4.5 0.0 - 4.5 08/12/2023 11:57 AM CDT [facility] VLDL CALCULATION 35 5 - 55 MG/DL 08/12/2023 11:57 AM CDT [facility] LIPID INTERPRETATION 08/12/2023 11:57 AM CDT [facility] Comment: NIH CONCENSUS REPORT RECOMMENDATIONS: ADULT CHILD LOW RISK: CHOLESTEROL <200 <170 TRIGLYCERIDE <150 --- HDL >=60 --- LDL <100 <110 BORDERLINE: CHOLESTEROL 200-239 170-199 TRIGLYCERIDE 150-199 --- HDL 40-59 --- LDL 100-159 110-129 HIGH RISK: CHOLESTEROL >=240 >=200 TRIGLYCERIDE >=200 --- HDL <40 --- LDL >=160 >=130 08/12/2023 11:0 9 AM CDT Jose Montero MD LABORATORY Final Result [facility] [address] [place] [address], from Last 3 Months or Most Recently Relevant to Health Maintenance Insurance [facility] [place] [address] [place] [id number] [facility] MEDICARE Advance Directives * Full Code (Latest Code Status on File) Date Activated Date Inactivated Comments 08/09/2023 12:03 PM 08/19/2023 3:54 PM * Full Code Date Activated Date Inactivated Comments 06/16/2023 12:13 AM 06/16/2023 10:39 PM Care Teams Wastewater Plant Civil Engineer Relationship Specialty Start Date End Date Rena Beckman MD [address] [place] [address] PCP - General FAMILY PRACTICE 06/15/23 Frandy Stout MD [address] [address] Consulting Physician CLINICAL CARDIAC ELECTROPHYSIOLOGY 03/20/24
[2025-01-24 11:20] LABS: Hematocrit 46.6 % (37.0-47.0); Hemoglobin 14.8 g/dL (12.0-15.0); Immature Granulocyte Percent A 0.3 % (0-0.5); Lymphocytes Absolute Auto 2.31 K/mm3 (0.9-3.2); Mean Corpuscular HGB Conc 31.8 g/dl (32-36); Mean Corpuscular Hemoglobin 29.2 pg (26-34); Mean Corpuscular Volume 91.9 fl (80-100); Nucleated Red Blood Cells Absolute Auto 0.000 K/mm3 (0.0-0.012); Nucleated Red Blood Cells Perc 0.0 % (0.0-0.2); Platelet Count Result 267 k/mm3 (150-375); Red Blood Count 5.07 M/mm3 (4.2-5.4); White Blood Count 7.6 K/mm3 (4.5-10.0)
--- OUTSIDE RECORDS SUMMARY | 2025-01-24 11:20 | XMS_ITS ---
Author Organization [facility] Address [address] [facility] [address] [place] [address] Phone Care Team Providers Care Club Car Attendant Name Role Phone Rena Beckman MD Primary Care Provider [phone] Kristin Gonzalez MD Unavailable [phone] Lance So DO Unavailable [phone] Brooke Puente INTERNATIONAL FREIGHT FORWARDER Unavailable + [phone] Active Problems Problem Noted Date Diagnosed Date Nondisplaced fracture of med ial malleolus of right tibia, initial encounter for closed fracture 06/04/2019 Closed fracture of shaft of right fibula 020 Closed fracture of shaft of right tibia 06/04/19 20 Loss of consciousness 06/04/2019 Tibial plateau fracture, right, closed, initial encounter 06/03/2019 Overview (06/03/2019): Added automatically from request for surgery [id number] Acute pain due to trauma 06/03/2019 Diabetes mellitus 05/07/2019 Hypercholesterolemia 05/07/2019 Lung mass 05/07/2019 Primary malignant neoplasm of lung 11/04/2017 Current Treatment and Therapy Plans No current plan information found. Past Treatment and Therapy Plans No past plan information found. Lifetime Dose Tracking * Chemical Lifetime Dose Automatic Entry Manual Entr y Fluoro Time 2 minutes 2 minutes 0 minutes Air kerma at the reference point (Ka,r) 7.23 mGy 7 .23 mGy 0 mGy DLP 6,371 mGycm 6,371 mGycm 0 mGycm Resolved Problems Problem Noted Date Diagnosed Date Resolved Date Radiotherapy follow-up 05/07/201906/03 Abnormal findings on diagnos tic imaging of lung 05/07/2019 06/03/2019 Headache 05/07/2019 06/03/2019 Knee pain 05/07/2019 06/03/2019 Obesity 05/07/2019 06/03/2019 Osteoarthritis 05/07/2019 06/03/2019 Tear of lateral meniscus of right knee 03/08/2019 06/03/2019
--- OUTSIDE RECORDS SUMMARY | 2025-01-24 11:20 | XMS_ITS | Clinical Summary ---
Author Organization [facility] 8 [facility] Address 8 [facility] [address] [place] [address] Phone Care Team Providers Care Fur Glosser Name Role Phone Rena Beckman MD Primary Care Provider [phone] Kristin Gonzalez MD Unavailable [phone] Lance So DO Unavailable [phone] Brooke Puente HAND IRONER Unavailable + [phone] Allergies Active Allergy Reactions Criticality Noted Date Comments Ciprofloxacin Unknown 09/13/2014 Codeine Nausea only Low 03/28/2019 Cephalexin Unknown 11/04/2017 Sulfa (Sulfonamide Antibiotics) Unknown 08/24 Medications metFORMIN (GLUCOPHAGE) 1,000 mg tablet Take 1 tablet (1,000 mg total) by mouth 2 (two) times a day with meals Active BD ULTRA-FINE MINI PEN NEEDLE 31 gauge x 3/16 needle USE 1 SUBCUTANEOUSLY 4 TIMES DAILY NEEDED 3 9 Active lancets 33 gauge misc OneTouch Delica Lancets 33 gauge Active pen needle, diabetic 31 gauge x 3/16 needle BD Ultra-Fine Mini Pen Needle 31 gauge x 3/16 USE 1 SUBCUTANEOUSLY 4 TIMES DAILY NEEDED Active LANTUS SOLOSTAR U-100 INSULIN 100 unit/mL (3 mL) insulin pen INJECT 50 UNITS SUBCUTANEOUSLY ONCE DAILY 9 Active insulin lispro (HumaLOG) 100 unit/mL insulin pen INJECT UP TO 15 UNITS SUBCUTANEOUSLY THREE TIMES DAILY BEFORE MEALS 9 Active simvastatin (ZOCOR) 20 mg tablet Take 1 tablet (20 mg total) by mouth nightly 30 tablet 0 Active albuterol HFA (PROVENTIL HFA,VENTOLIN HFA,PROAIR HFA) 90 mcg/actuation inhaler INHALE TWO PUFFS BY MOUTH EVERY 4 TO 6 HOURS NEEDED 8 Active ALPRAZolam (XANAX) 0.5 mg tablet TAKE 1 TABLET BY MOUTH THREE TIMES DAILY NEEDED FOR ANXIETY 9 Active blood glucose diagnostic (Accu-Chek SmartView Test Strip) strip TEST TWICE A DAY 6 Active lancing device misc 0 Active OneTouch Verio High Control solution 0 Active gabapentin (NEURONTIN) 300 mg capsule 0 Active Trulicity 1.5 mg/0.5 mL pen injector INJECT 1.5 MG SUBCUTANEOUSLY ONCE A WEEK 2 Active Dexcom G7 Sensor device USE FOR CONTINUOUS BLOOD GLUCOSE MONITORING, REPLACE EVERY 10 DAYS 3 Active Active Problems Problem Noted Date Diagnosed Date Nondisplaced fracture of med ial malleolus of right tibia, initial encounter for closed fracture 06/04/2019 Closed fracture of shaft of right fibula 020 Closed fracture of shaft of right tibia 06/04/19 20 Loss of consciousness 06/04/2019 Tibial plateau fracture, right, closed, initial encounter 06/03/2019 Overview (06/03/2019): Added automatically from request for surgery [id number] Acute pain due to trauma 06/03/2019 Diabetes mellitus 05/07/2019 Hypercholesterolemia 05/07/2019 Lung mass 05/07/2019 Primary malignant neoplasm of lung 11/04/2017 Resolved Problems Problem Noted Date Diagnosed Date Resolved Date Radiotherapy follow-up 05/07/201906/03 Abnormal findings on diagnos tic imaging of lung 05/07/2019 06/03/2019 Headache 05/07/2019 06/03/2019 Knee pain 05/07/2019 06/03/2019 Obesity 05/07/2019 06/03/2019 Osteoarthritis 05/07/2019 06/03/2019 Tear of lateral meniscus of right knee 03/08/2019 06/03/2019 Immunizations Immunization Administration Dates Next Due Influenza, Quadrivalent, Yuni l Culture-based MDCK, Antibiotic Free, Intramuscular 07/03/2018 Influenza, Quadrivalent, Yuni l Culture-based MDCK, Preservative Free, Antibiotic Free, Intramuscular 05/05/2020 Influenza, Quadrivalent, Spl it, Preservative Free, Intramuscular 06/21/2019,06/19/2019 Influenza, Trivalent, IM (MDV) 07/03/2018 Surgical History Surgery Date Site/Laterality Comments CHOLECYSTECTOMY HYSTERECTOMY OOPHORECTOMY KNEE SURGERY Medical History Medical History Date Comments Diabetes mellitus Lung cancer (HCC) Hypercholesteremia Asthma Bleeding disorder Peripheral neuropathy Hx of radiation therapy Family History Medical History Relation Name Comments Heart failure Father Lymphoma Father Cancer Other Clotting disorder Other Diabetes Other Heart disease Other Hypertension Other Stroke Other Lung cancer Sister Relation Name Status Comments Father (Age 60) 60 when di agnosed Other Sister (Age 51) 49 when di agnosed Social History Tobacco Use Types Packs/Day Years Used Date Smoking Tobacco: Former Cigarettes 2 20 1 2012 Smokeless Tobacco: Never Alcohol Use Standard Drinks/Week Comments No 0 (1 standard drink = 0.6 oz pur e alcohol) AUDIT-C Answer Date Recorded Q1: How often do you have a drink containing alcohol? Never 05/27/2023 Q2: How many drinks containi ng alcohol do you have on a typical day when you are drinking? Patient does not drink Q3: How often do you have si x or more drinks on one occasion? Never 05/27/2023 Comments No Sex and Gender Information Value Date Recorded Sex Assigned at Not on file Legal Sex Female 7:02 PM ENGINE TEST CELL TECHNICIAN Gender Identity Not on file Sexual Orientation Not on file Obstetrics History Last Filed Vital Signs Vital Sign Reading Time Taken Comments Blood Pressure 103/70 05/27/2023 2:31 PM ENGINE TEST CELL TECHNICIAN Pulse 96 05/27/2023 2:31 PM ENGINE TEST CELL TECHNICIAN Temperature 36.6 C (97.9 F) 05/27/2023 2:31 PM ENGINE TEST CELL TECHNICIAN Respiratory Rate 20 05/27/2023 2:31 PM ENGINE TEST CELL TECHNICIAN Oxygen Saturation 96% 05/27/2023 2:31 PM ENGINE TEST CELL TECHNICIAN Inhaled Oxygen Concentration - - Weight 112.4 kg (247 lb 12.8 oz) 05/27/2023 2:31 PM ENGINE TEST CELL TECHNICIAN Height 162.6 cm (5' 4) 05/27/2023 2:31 PM ENGINE TEST CELL TECHNICIAN Body Mass Index 42.53 05/27/2023 2:31 PM ENGINE TEST CELL TECHNICIAN Plan of Treatment Health Maintenance Due Date Last Done Comments Albumin Creatinine Ratio, Urine 1960 Breast Cancer Screening-Mammogram 1960 Colon Cancer Screening-Colonoscopy 1960 Depression Screening 1960 Hepatitis C Screening 1960 Dilated Eye Exam 1960 Foot Exam 1960 DTaP/Tdap/Td Vaccine (1 - Tdap) 07/16/1971 Hepatitis B Screening 1978 Regular Well Visit/Exam 18-64 1978 Pneumococcal vaccine <65 (1 of 2 - PCV) 07/16/1979 Zoster Vaccine (1 of 2) 2010 Hemoglobin A1C 12/02/2019 06/03/2019, 0908/2013, 07/10/2013 Lipid Panel 06/04/2020 06/04/2019, 10/16/2013 eGFR 08/28/2024 08/29/2023, 07/25, 08/20/2023, Additional history exists Influenza Vaccine (#1) 2024 , 06/21/2019, 06/19/2019, Additional history exists Medical Devices Implanted Type Area Fire [employer] Chief Device Identifier Shelf Expiration Date Model / Serial / Lot [employer]/Orth o [id number] Trigen [place]-Nail 10mm 32cm Tibial Nail Intramedullary Titanium - [id number] Implanted:Qty: 1 on 06/03/2019 by Xander Fall MD at [facility] Nail Right: Tibia [employer]/Or tho [id number] / / [employer]/Orth o [id number] 5mm 37.5mm Low Profile Internal Hex Femur Screw Bone Trigen - [id number] Implanted:Qty: 2 on 06/03/2019 by Xander Fall MD at [facility] Right: Tibia [employer]/Or tho [id number] / / [employer]Rich[employer]/Orth o [id number] 5mm 55mm Low Profile Internal Hex Femur Screw Bone Trigen - [id number] Implanted:Qty: 1 on 06/03/2019 by Xander Fall MD at [facility] Right: Tibia [employer]Or tho [id number] / / [employer]/Orth o [id number] 5mm 45mm Low Profile Internal Hex Femur Screw Bone Trigen - [id number] Implanted:Qty: 1 on 06/03/2019 by Xander Fall MD at [facility] Right: Tibia [employer]/Or tho [id number] / / [employer]/Orth o [id number] Deborah-Loc Vlp 3.5mm 40mm Self Tap Lock Foot Fibula Cortical Screw - [id number] Implanted:Qty: 1 on 06/03/2019 by Xander Fall MD at [facility] Right: Tibia [employer]Or tho [id number] / / Procedures Procedure Name Priority Date/Time Associated Diagnosis Comments EGFR Routine 08/29/2023 7:08 AM CDT LIPID PANEL Routine 06/04/2019 4:27 AM ENGINE TEST CELL TECHNICIAN HEMOGLOBIN A1C STAT 06/03/2019 8:45 AM ENGINE TEST CELL TECHNICIAN from Last 3 Months or Most Recently Relevant to Health Maintenance Results * (ABNORMAL) eGFR (08/29/2023 7:08 AM CDT) eGFR 56(L) >=60 mL/min/1. 73 m2 DOMENICO Comment: Interpretive Data Reference Interval Normal >/= 90 mL/min/1.73m2 Mildly decreased* 60 - 89 mL/min/1.73m2 Mildly to moderately decreased 45 - 59 mL/min/1.73m2 Moderately to severely decreased 30 - 44 mL/min/1.73m2 Severely decreased 15 - 29 mL/min/1.73m2 Kidney Failure < 15 mL/min/1.73m2 *Relative to young adult level Estimated glomerular filtration rate is determined by the 2020 CKD-EPI equation recommended by the National Kidney Foundation (A Unifying Approach to GFR Estimation: Recommendations of the NKF-ASK Task Force on Reassessing the Inclusion of Race in Diagnosing Kidney Disease, JASN 202). The CKD-EPI equation should not be used for patients with unstable renal function and has not been validated in children and those over 70. Current interpretive data was last reviewed 2021. Testing performed by: [facility], [address] [place] [address], [place]., [address] Blood 08/29/2023 7:08 AM CDT 08/29/2023 9:14 AM CDT us Notinfile Unknown LAB BLOOD ORDERABLES Final Res ult DOMENICO [address] [facility] Department [place] [address] * Lipid panel (06/04/2019 4:27 AM ENGINE TEST CELL TECHNICIAN) Cholesterol 141 30 - 199 mg/dL [facility] Comment: Interpretive Data Ages < or = 19 years Acceptable: <170 mg/dL Borderline high: 170-199 mg/dL High: >or= 200 mg/dL Ages > or = 20 years Desirable: <200 mg/dL Borderline high: 200-239 mg/dL High: >or= 240 mg/dL Literature References: 1. Expert Panel on Integrated Guidelines for Cardiovascular Health and Risk Reduction in Children and Adolescents. Pediatrics 2011;128:S213 2. NCEP Expert Panel. Circulation 2004;110:227 Current Interpretive Data was last revised on 2017. Triglycerides 95 <=149 mg/dL [facility] Comment: Interpretive Data Ages < or = 9 years Acceptable: <75 mg/dL Borderline high: 75-99 mg/dL High: >or= 100 mg/dL Ages 10 to 20 years Acceptable: <90 mg/dL Borderline high: 90-129 mg/dL High: >or= 130 mg/dL Ages > or = 20 years Desirable: <150 mg/dL Borderline high: 150-199 mg/dL High: 200-499 mg/dL Very high: >or= 499 mg/dL Literature References: 1. Expert Panel on Integrated Guidelines for Cardiovascular Health and Risk Reduction in Children and Adolescents. Pediatrics 2011;128:S213 2. NCEP Expert Panel. Circulation 2004;110:227 Current Interpretive Data was last revised on 2017. HDL 54 >=40 mg/dL [facility] Comment: Interpretive Data Ages < or = 19 years Acceptable: >45 mg/dL Borderline low: 40-45 mg/dL Low: <40 mg/dL Ages > or = 20 years Desirable: >or= 60 mg/dL Low: <40 mg/dL Literature References: 1. Expert Panel on Integrated Guidelines for Cardiovascular Health and Risk Reduction in Children and Adolescents. Pediatrics 2011;128:S213 2. NCEP Expert Panel. Circulation 2004;110:227 Current Interpretive Data was last revised on 2017. LDL, calculated 68 <=129 mg/dL [facility] Comment: Interpretive Data Ages < or = 19 years Acceptable: <110 mg/dL Borderline high: 110-129 mg/dL High: >or= 130 mg/dL Ages > or = 20 years Optimal: <100 mg/dL Near optimal: 100-129 mg/dL Borderline high: 130-159 mg/dL High: >160 mg/dL Literature References: 1. Expert Panel on Integrated Guidelines for Cardiovascular Health and Risk Reduction in Children and Adolescents. Pediatrics 2011;128:S213 2. NCEP Expert Panel. Circulation 2004;110:227 Current Interpretive Data was last revised on 2017. Non-HDL Cholesterol 87 mg/dL [facility] Comment: Interpretive Data Ages < or = 19 years Acceptable: <120 mg/dL Borderline high: 120-144 mg/dL High: >145 mg/dL Ages > or = 20 years When triglycerides are >200 mg/dL, Non-HDL cholesterol is a secondary target of therapy with treatment goals that are 30 mg/dL greater than the LDL cholesterol target. Literature References: 1. Expert Panel on Integrated Guidelines for Cardiovascular Health and Risk Reduction in Children and Adolescents. Pediatrics 2011;128:S213 2. NCEP Expert Panel. Circulation 2004;110:227 Current Interpretive Data was last revised on 2017. Chol/HDL ratio 3 [facility] Blood specimen (specimen) 06/04/2019 4:27 AM ENGINE TEST CELL TECHNICIAN 06/04/2019 4:49 AM ENGINE TEST CELL TECHNICIAN us Chana Estrella MD LAB BLOOD ORDERABLES F inal Result Performing Organization Address [facility] de Phone Number [facility] Department [place] [address] * (ABNORMAL) Hemoglobin A1c (06/03/2019 8:45 AM ENGINE TEST CELL TECHNICIAN) Hgb A1C 7.6(H) 4.0 - 5.6 % [facility] Estimated Average Glucose 171 mg/dL [facility] Comment: The ADA recommends reporting an estimated Average Glucose (eAG) with all Hemoglobin A1c results using the equation derived from a study of 507 normal and diabetic adults. Minority populations were underrepresented and children were not included. (Diabetes Care 31:3293-8949, 2008). The eAG is not equivalent to a fasting glucose. Blood specimen (specimen) 06/03/2019 8:45 AM ENGINE TEST CELL TECHNICIAN 06/03/2019 8:59 AM ENGINE TEST CELL TECHNICIAN Chana Estrella MD LAB BLOOD ORDERABLES F inal Result Performing Organization Address [facility] de Phone Number DOMEN[facility] [place] [address] from Last 3 Months or Most Recently Relevant to Health Maintenance Insurance [facility] [address] MEDICARE A[employer] COVENTRY PPO AETNA SIG [id number] [facility] MEDICARE ADVANTAGE Advance Directives For more information, please contact: [phone] * Full Code (Latest Code Status on File) Date Activated Date Inactivated Comments 06/03/2019 3:00 PM 06/07/2019 10:29 PM Care Teams Fur Glosser Relationship Specialty Start Date End Date Rena Beckman MD PCP - General Family Medicine 10/31/17 Kristin Gonzalez MD [address] [facility] [address] [address] Referring Physician Critical Care Med 10/31/17 [place] [address] [place] [address] MEDICAL ONCOLOGY, [facility] [address] [place] [address] Medical Oncologist/Methodologist Hematology and Oncology 04/29/22 Brooke Puente, ROBER [address] [place] [phone] Nurse Practitioner Medical Oncology 03/30/23
[2025-01-24 11:43] LABS: Alanine Aminotransferase 19 U/L (6-35); Albumin Level 4.2 g/dL (3.5-5.1); Alkaline Phosphatase 119 U/L (38-126); Anion Gap 10 mmol/L (4-12); Aspartate Amino Transferase 25 U/L (14-36); Bilirubin,Total 0.5 mg/dL (0.2-1.3); Blood Urea Nitrogen 14 mg/dL (7-17); Calcium 9.2 mg/dL (8.4-10.2); Carbon Dioxide 25 mmol/L (22-30); Chloride 103 mmol/L (98-107); Cholesterol 184 mg/dL (0-200); Estimated Glomerular Filt Rate 49; Glucose 178 mg/dL (65-110); HDL Direct 48 mg/dL; Potassium 4.4 mmol/L (3.4-5.0); Sodium 138 mmol/L (137-145); Total Protein 8.3 g/dL (6.3-8.2); Triglycerides 201 mg/dL (<150)
[2025-01-24 11:47] LABS: Hemoglobin A1C 7.7 % (<5.7)
[2025-01-24 12:00] LABS: Free T4 Free Thyroxine 0.75 ng/dL (0.78-2.19)
[2025-01-24 12:19] LABS: Thyroid Stimulating Hormone 2.860 uIU/mL (0.465-4.680)
== END 2025-01-24 10:47 | disposition home or self-care (01) ==
PROVIDERS: PCP Student in an Organized Health Care Education/Training Program; Visit Provider Student in an Organized Health Care Education/Training Program
DX: E11.65 Type 2 diabetes mellitus with hyperglycemia (principal); F41.9 Anxiety disorder, unspecified; E78.2 Mixed hyperlipidemia; E11.22 Type 2 diabetes mellitus with diabetic chronic kidney disease; N18.30 Chronic kidney disease, stage 3 unspecified; C34.90 Malignant neoplasm of unspecified part of unspecified bronchus or lung; I63.9 Cerebral infarction, unspecified; G62.9 Polyneuropathy, unspecified; R53.83 Other fatigue
CPT/HCPCS: 36415; 80053; 80061; 82306; 83036; 84439; 84443; 85025

== ENCOUNTER 2025-02-15 14:40 | Outpatient (CLI) | payer MEDICARE, SELFPAY ==
--- NOTE | ~2025-02-15 | DEXA_ITS ---
Bone Density Report Name: TREVOR CRANE Age: 64 Sex: Female Ethnicity: White Date of : 1960 Indication: postmenopausal; screening for osteoporosis; height loss; cancer; hysterectomy; Referring Provider: LUANA GUZMÁN Study: Bone densitometry was performed. Exam Date: February 15, 2025 Accession number: [id number] Bone Density: Region BMD T-score Z-score Classification AP Spine(L1, L2, L3) 0.853 -1.5 0.2 Osteopenia Femoral Neck (Left) 0.649 -1.8 -0.3 Osteopenia Total Hip (Left) 0.836 -0.9 0.3 Normal World Health Organization criteria for BMD impression classify patients as: Normal (T-score at or above -1.0), Osteopenia (T-score between -1.0 and -2.5), or Osteoporosis (T-score at or below -2.5). 10-year Fracture Risk(1): Major Osteoporotic Fracture 8.4% Hip Fracture 0.9% Reported Risk Factors: [place] (), Neck BMD=0.649, BMI=40.2 (1) FRAX(R) Version 3.08. Fracture probability calculated for an untreated patient. Fracture probability may be lower if the patient has received treatment. Previous Exams: -- Region Exam Age BMD T-score BMD Change BMD Change Date g/cm2 vs Baseline vs Previous -- Total Hip(Left) 02/15/2025 64 0.836 -0.9 0.4% 0.4% 02/15/2025 64 0.834 -0.9 -- *Denotes significance at 95% confidence level, LSC for Total Hip = 0.027 g/cm2 Clinical Information Provided by Patient: Has the following medical conditions: Cancer, Hysterectomy, small cell lung cancer Patient maximum height was 65 Menopause Age: 40 No regular weight bearing exercise Does not regularly consume dairy products Onset of menses at age 13 Number of children 2 Impression: The patient has low bone mass, based on the Left Femoral Neck T-score. The patient has an estimated ten-year risk of hip fracture of 0.9% and an estimated ten-year risk of major fracture of 8.4%, based on the WHO FRAX algorithm. No significant bone loss was observed. Discussion: BONE DENSITY IS LOW AT ONE OR MORE SKELETAL SITES. This patient's lowest T-score is low at one or more skeletal sites. It meets the World Health Organization's (WHO) criteria for ?low bone mass? (T-score between -1.0 and -2.5). The patient's 10-year risk of fracture as calculated by FRAX is less than the threshold where pharmacological therapy is recommended by the National Osteoporosis Foundation (NOF). However, all treatment decisions require clinical judgment and consideration of individual patient factors, including patient preferences, comorbidities, previous drug use, risk factors not captured in the FRAX model (e.g., frailty, falls, vitamin D deficiency, increased bone turnover, interval significant decline in bone density) and possible under or overestimation of fracture risk by FRAX. The patient should follow a healthful lifestyle (good nutrition with adequate calcium and vitamin D, and appropriate weight-bearing exercise). Follow-Up: Consider repeating this study in 2 to 3 years to reassess this patient's status, or sooner if there is some new clinical indication. Reported by: TRANG on 02/15/2025 3:09:00 PM. Reviewed, dictated and finalized at location A.
== END 2025-02-15 14:41 | disposition home or self-care (01) ==
LOC: MICIMG 14:41
PROVIDERS: PCP Student in an Organized Health Care Education/Training Program; Visit Provider Student in an Organized Health Care Education/Training Program
DX: M85.89 Other specified disorders of bone density and structure, multiple sites (principal); Z78.0 Asymptomatic menopausal state
CPT/HCPCS: 77080